=== PATIENT | male | born 1995 | race Hispanic/Latino ===

== ENCOUNTER 2020-11-26 07:50 | Emergency (ER) | payer OTHER ==
[~2020-11-26] VITALS: Ht 175.3 cm; Wt 104.3 kg
[2020-11-26 07:57] VITALS: BP 117/64
[2020-11-26] MEDS: ACETAMINOPHEN 500 MG TABLET PO ONE (08:47)
[2020-11-26] MEDS: KETOROLAC 60 MG VIAL (30MG/ML) IM ONE (08:47)
[2020-11-26] MEDS: LIDOCAINE 5% TOPICAL PATCH TP ONE (08:47)
[2020-11-26] MEDS ORDERED: LIDOP TD (08:57)
[2020-11-26] MEDS ORDERED: ORPH100 PO (08:57)
[2020-11-26] MEDS ORDERED: NAPR-1180 PO (08:57)
== END 2020-11-26 09:04 | disposition home or self-care (01) ==
LOC: EDH 07:50
DX: S39.012A Strain of muscle, fascia and tendon of lower back, initial encounter (principal); Z79.1 Long term (current) use of non-steroidal anti-inflammatories (NSAID); X58.XXXA Exposure to other specified factors, initial encounter; Y93.89 Activity, other specified; Y92.89 Other specified places as the place of occurrence of the external cause; Y99.8 Other external cause status
CPT/HCPCS: 72110; 73502; 96372; 99284; J1885

== ENCOUNTER 2022-11-16 18:50 | Emergency (ER) | payer OTHER ==
[~2022-11-16 18:50] MED LIST: LIDOP TD; NAPR-1180 PO; ORPH100 PO
== END 2022-11-16 20:48 | disposition left against medical advice (07) ==
LOC: EDH 18:50
DX: M54.9 Dorsalgia, unspecified (principal); K92.0 Hematemesis; Z53.21 Procedure and treatment not carried out due to patient leaving prior to being seen by health care provider

== ENCOUNTER 2022-11-19 06:30 | Emergency (ER) | payer OTHER ==
[~2022-11-19] VITALS: Ht 172.7 cm; Wt 117.9 kg
[2022-11-19 07:41] LABS: BASOPHILS # (AUTO) 0.04 K/uL (0.00-0.20); BASOPHILS % (AUTO) 0.3 % (0.0-5.0); EOSINOPHILS # (AUTO) 0.04 K/uL (0.00-0.70); EOSINOPHILS % (AUTO) 0.3 % (0.0-8.0); HEMATOCRIT 42.4 % (42-54); IMMATURE GRANULOCYTE ABSOLUTE 0.07 K/uL (0-1); LYMPHOCYTES # (AUTO) 1.5 K/uL (1.0-4.8); LYMPHOCYTES % (AUTO) 12.2 % (21.0-51.0); MEAN CORPUSCULAR HGB CONC 34.4 g/dL (32.0-36.0); MEAN CORPUSCULAR VOLUME 87.2 fL (79-99); MONOCYTES # (AUTO) 0.8 K/uL (0.1-1.0); MONOCYTES % (AUTO) 6.1 % (3.0-13.0); NEUTROPHILS # (AUTO) 10.1 K/uL (1.8-7.7); NEUTROPHILS % (AUTO) 80.5 % (40.0-77.0); PLATELET COUNT (AUTO) 361 K/uL (130-400); RED BLOOD CELL COUNT(AUTO) 4.86 MIL/uL (4.50-6.20); RED CELL DISTRIBUTION WIDTH 13.2 % (11.0-15.5); WHITE BLOOD COUNT (AUTO) 12.5 K/uL (4.8-10.8)
[2022-11-19 07:53] LABS: BILIRUBIN,TOTAL 0.7 mg/dL (0.2-1.0); CREATININE 1.1 mg/dL (0.5-1.5); POTASSIUM 3.6 mmol/L (3.5-5.1); TOTAL PROTEIN, SERUM 7.9 g/dL (6.0-8.3)
[2022-11-19] MEDS ORDERED: MORPHINE 4 MG SYG IVP ONE (08:30)
[2022-11-19] MEDS ORDERED: LACTATED RINGERS 1000ML 1,000 ML IV ONE (08:30)
[2022-11-19] MEDS ORDERED: ONDANSETRON 4MG INJ IVP ONE (08:30)
[2022-11-19 09:54] VITALS: BP 135/74; PULSE 71; RESP 16; O2SAT 98
[2022-11-19] MEDS ORDERED: IOHEXOL 350 MG/ML 100ML INFUS..BTL IV ONE (10:31)
[2022-11-19 12:03] LABS: ADD UA MICROSCOPIC YES; APPEARANCE,URINE CLEAR (CLEAR); BILIRUBIN,URINE NEGATIVE (NEGATIVE); COLOR,URINE LIGHT-YELLOW (YELLOW); GLUCOSE, URINE (UA) NEGATIVE (NEGATIVE); KETONES,URINE 40 mg/dL (NEGATIVE); LEUKOCYTE ESTERASE ,URINE NEGATIVE Leu/uL (NEGATIVE); NITRATE,URINE NEGATIVE (NEGATIVE); OCCULT BLOOD,URINE NEGATIVE (NEGATIVE); PH,URINE 7.5 (5.0-8.0); PROTEIN,URINE 20 mg/dL (NEGATIVE); UROBILINOGEN,URINE 0.2 mg/dL (0.2-1.0)
[2022-11-19 12:04] LABS: MUCUS,URINE RARE LPF (None Seen); SQUAMOUS EPITHELIAL CELL,UR RARE /HPF (0-2)
[2022-11-19] MEDS ORDERED: METOCLOPRAMIDE 10 MG/2 ML VIAL IVP ONE (12:30)
[2022-11-19] MEDS ORDERED: PANT20TA18 PO (13:09)
[2022-11-19] MEDS ORDERED: ONDA4TAB10 PO (13:09)
== END 2022-11-19 13:47 | disposition home or self-care (01) ==
LOC: EDH 06:30
DX: R10.13 Epigastric pain (principal); R11.2 Nausea with vomiting, unspecified; Z79.899 Other long term (current) drug therapy
CPT/HCPCS: 99285; 74177; 96374; 96375; 96361; 80053; 83690; 85025; 81001; 36415; J7120; J2405; J2270; J2765; Q9967